=== PATIENT | female | born 1970 | race Caucasian/White ===

== ENCOUNTER 2019-11-05 02:51 | Observation (INO) | payer OTHER, SELFPAY ==
[2019-05-20 13:12] VITALS: BMI 25.4
[2019-11-05] VITALS (8 sets, daily range): BP systolic 105–139; BP diastolic 65–87; PULSE 63–96; RESP 14–17; TEMP 36.8–37.2; O2SAT 98–100; BMI 25.4; BMI 25.1
--- NOTE | 2019-11-05 02:57 | ED.RN ---
RN CALLED FOR EKG, PULLED OLD EKGS FOR
--- NOTE | 2019-11-05 03:03 | EKG12_ITS ---
Test Reason : CP Blood Pressure : / mmHG Vent. Rate : 100 BPM Atrial Rate : 100 BPM P-R Int : 150 ms QRS Dur : 116 ms QT Int : 380 ms P-R-T Axes : 071 018 002 degrees QTc Int : 490 ms Normal sinus rhythm Incomplete right bundle branch block Nonspecific ST and T wave abnormality Prolonged QT Abnormal ECG Confirmed by SUDHAKAR BRADFORD, MARYBETH ([id number]), assignment editor MEAGAN MONTENEGRO ([id number]) on 11/08/2019 3:40:18 PM Referred By: CONSUELO Confirmed By:MARYBETH DE LA FUENTE MD
--- NOTE | 2019-11-05 03:03 | RAD_ITS ---
STUDY: X-RAY CHEST REASON FOR EXAM: Female, 49 years old. Sternal chest pain TECHNIQUE: Single AP portable view of the chest. COMPARISON: 12/10/2014 FINDINGS: The lungs are clear and expanded. There is no demonstrated pleural abnormality. Normal size heart. Normal mediastinum and ismael. Normal visualized pulmonary arteries. Normal visualized aortic arch and descending thoracic aorta. Normal visualized thoracic spine. Normal visualized ribs, clavicles, and shoulders. There is no demonstrated abnormality of the visualized soft tissue structures of the upper abdomen. RAD/Chest 1 View (Portable) IMPRESSION: Normal x-ray examination of the chest. Electronically Signed: Robbi Colby MD at 3:23 EST Tel , Service support ,
--- NOTE | 2019-11-05 03:04 | ED.VIS.GEN ---
History of Present Illness Chief Complaint: Chest Pain Informant: Patient Onset: Hours Current Severity: Mild Maximum Severity: Moderate Narrative: Patient presents with complaint of chest pain. She states she was awoken from sleep an hour and a half ago with chest heaviness and pressure. She felt slightly short of breath and felt clammy. states she was complaining of her jaw not feeling right. Patient states she did not quite feel right yesterday but really cannot put her finger on what specifically was bothering her. Patient is a history of paroxysmal A. fib. She reported is not been in A. fib since 2014. She did stress test at that time is unremarkable. Patient is currently on baby aspirin as well as metoprolol for rate control. She states she is never really had trouble with hypertension or high cholesterol. - Past Medical History (1) Incomplete right bundle branch block Status: Chronic (2) Paroxysmal atrial fibrillation Status: Chronic Past Medical History - Allergies and Home Meds Allergies/Adverse Reactions: Allergies No Known Allergies Allergy (Verified 11/05/19 02:53) Primary Care Physician: Care Physician,No Primary [NON-STAFF] - Doctors: Dr. Mendez Prior records reviewed: Yes Surgical History: - - Cholecystectomy, back surgery, unilateral oopherectomy. Lives: With Family Smoking Status: Never smoker - Family History Maternal Family History: Family History (Last Reviewed 05/20/19 @ 13:[address]) Mother Heart disease Hypertension Family History: Reports: Heart Disease Paternal Family History: Family History (Last Reviewed 05/20/19 @ 13:[address]) Mother Heart disease Hypertension Family History: Reports: No pertinent history Review of Systems General: Denies: Chills, Fever Eyes: Denies: Visual changes - bilaterally ENT: Denies: Bilateral ear pain Cardiovascular: Reports: Chest pain. Denies: Palpitations Respiratory: Reports: Dyspnea. Denies: Cough, Sputum Gastrointestinal: Denies: Abdominal pain, Nausea, Vomiting, Diarrhea Genitourinary: Denies: Dysuria Musculoskeletal: Denies: Swelling, Extremity Pain Skin: Denies: Rash Neurological: Denies: Headache Allergy: Denies: Uticaria Physical Exam Vital Signs/Narrative: Vital Signs Temp Pulse Resp BP Pulse Ox 11/05/19 02:53 98.9 F 96 17 139/87 H 100 Inital Vital Signs reviewed: Yes General: Well nourished, Well developed Head: Normocephalic ENT: Moist mucous membranes Neck: Supple Cardiovascular: Regular rate, Regular rhythm Respiratory: No distress, CTA bilaterally Abdomen: Soft, Nontender, Nondistended Extremities: Nontender Skin: Normal color, No rash Neurological: Alert, Oriented x3 Psychological: Normal affect Diagnostic/Tx/Re-eval Impressions Chest X-Ray 11/05/19 03:03 IMPRESSION: Normal x-ray examination of the chest. Electronically Signed: Robbi Colby MD at 3:23 EST Tel , Service support , 11/05/19 03:03 Chest 1 View (Portable) [RAD] Stat Laboratory Results 11/05/19 11/05/19 03:00 03:00 WBC 8.1 RBC 4.16 L Hgb 12.5 Hct 38.0 MCV 91.3 MCH 30.0 MCHC 32.9 RDW Std Deviation 41.7 RDW Coeff of Joe 12.6 Plt Count 219 MPV 10.6 Immature Gran % (Auto) 0.200 Neut % (Auto) 61.9 Lymph % (Auto) 25.8 [place] % (Auto) 9.1 Eos % (Auto) 2.6 Baso % (Auto) 0.4 Absolute Neuts (auto) 5.0 Absolute Lymphs (auto) 2.08 Nucleated RBC % 0 Sodium 139 Potassium 3.3 L Chloride 106 Carbon Dioxide 27.0 Anion Gap 6 BUN 16 Creatinine 0.71 Estim Creat Clear Calc 90.71 Est GFR (MDRD) Af Amer 113 Est GFR (MDRD) Non-Af 93 BUN/Creatinine Ratio 22.6 H Glucose 104 Calcium 8.8 Troponin I < 0.015 - EKG Initial EKG Interpretation: Sinus Rhythm - Sinus at 100 with incomplete right bundle branch block. There is mild ST depression in the lateral precordial leads. This does appear new when compared to old study, however previous study was in 2015. - Medical Decision Making Patient had taken 2 full size aspirin prior to arrival here. Sitting at rest she states her pain is much improved. Troponin at this time is unremarkable, however I did discuss with her that the blood work was obtained with less than 6 hours of symptoms. Potassium is slightly low and she will be given oral potassium replacement. I have recommended hospitalization for cycling of cardiac enzymes and potential stress test. She is in agreement with this plan. ED Disposition - Plan for ED Patient: Disposition: Acute Care Hospital [facility] Referrals: Care Physician,No Primary [NON-STAFF] -
[2019-11-05 03:09] LABS: Absolute Lymphocyte Count 2.08 X10^3/uL (0.83-4.51); Basophil# 0.03 X10^3/uL; Basophil% 0.4 % (0-1); Eosinophil# 0.21 X10^3/uL; Eosinophils% 2.6 % (0-5); Hemoglobin 12.5 g/dL (12.0-15.0); Lymphocyte # 2.08 X10^3/ul (4.0); Lymphocyte % 25.8 % (19-41); Mean Corp Hgb Conc 32.9 g/dL (32-36); Mean Corpuscular Volume 91.3 fL (81-99); Mean Platelet Vol. 10.6 fl (6.2-12.0); Monocyte# 0.73 X10^3/uL; Monocyte% 9.1 % (0-10); NRBC Flagged by Analyzer 0 % (0-5); Neutrophil # 4.98 X10^3/uL (2.7-7.7); Neutrophil % 61.9 % (47-70); Platelet Count 219 K/mm3 (150-450); RBC Distribution Width CV 12.6 % (11.6-14.6); RBC Distribution Width SD 41.7 fl (35.1-43.9); Red Blood Count 4.16 M/mm3 (4.2-5.4); White Blood Count 8.1 K/mm3 (4.4-11.0)
[2019-11-05] MEDS: 0.9% Normal Saline 1,000 ML 150 ML IV (03:25)
[2019-11-05 03:26] LABS: BUN 16 mg/dL (7-18); Creatinine, Serum 0.71 mg/dL (0.55-1.02); EST Glomerular Filtration Rate 93 mL/min (>60); Estimated Creatinine Clearance 90.71 ml/min; Glucose 104 mg/dL (74-106)
[2019-11-05 03:27] LABS: Anion Gap 6 (5-15); BUN/Creat Ratio 22.6 RATIO (10-20); Calcium,Total 8.8 mg/dL (8.5-10.1); Chloride 106 mmol/L (98-107); Est Glom Filt Rate - Afr Amer 113 mL/min (>60); Potassium 3.3 mmol/L (3.5-5.1); Sodium Level 139 mmol/L (136-145)
--- NOTE | 2019-11-05 04:16 | HP.PCM_ITS ---
Problem List (1) Unstable angina Status: Acute (2) Paroxysmal atrial fibrillation Status: Chronic (3) Incomplete right bundle branch block Status: Chronic History of Present Illness Date of Admission: 11/05/19 Chief Complaint: chest pain The patient is a 49 year old F with a significant history of paroxysmal A. fib in 2014 who presents emergency department with chest pain that actually woke up from the sleep. Chest pain is located at the upper side of his chest. She describes her chest pain as a feeling of something sitting on her chest. Her chest pain was initially intermittent but it became constant. She rated her the severity of her chest pain as 6 out of 10. The chest pain radiated to her jaw; to her left shoulder and to his upper back. Associated with symptoms is nausea; shortness of breath or rigors. Also her hands felt clammy and diaphoretic. Her chest pain began about a hour and fifteen minutes prior to presentation. Of note she took daily routine baby aspirin before she went to sleep. And at the onset of the chest pain she took 2 tablets of full dose aspirin. At time of evaluation at the emergency department her chest pain was 3 out of 10. At the emergency department EKG showed ST depressions in leads V3 through V6. And T waves inversion in lead V1 and V2. Troponin was negative. Past Medical History Past Medical History (Chronic Problems): Chronic Problems (Last Reviewed 05/20/19 @ 13:[address]) Paroxysmal atrial fibrillation (Chronic) Incomplete right bundle branch block (Chronic) Medical History: Medical History (Last Reviewed 11/05/19 @ 04:[address] Pepito Munguia MD) Paroxysmal atrial fibrillation (Chronic) I48.0 Incomplete right bundle branch block (Chronic) I45.10 Chronic back pain M54.9, G89.29 Allergies No Known Allergies Allergy (Verified 11/05/19 02:53) Home Medications: Ambulatory Orders Medication Instructions Recorded aspirin 81 mg tablet,delayed 81 mg PO DAILY 10/09/18 release metoprolol succinate 25 mg 25 mg PO DAILY #30 tab 05/20/19 tablet,extended release 24 hr Calcium 2 tab PO DAILY 11/05/19 L.acidoph,Paracasei, B.lactis 1 ea PO DAILY 11/05/19 [Probiotic] Surgical History: Surgical History (Last Reviewed 11/05/19 @ 04:[address] Pepito Munguia MD) History of back surgery Z98.890 History of cholecystectomy Z90.49 History of oophorectomy Surgical History: - - Cholecystectomy, back surgery, unilateral oopherectomy secondary to endometriosis. 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 Pepito Munguia MD) Mother Heart disease Hypertension History Items: Cancer - Uterine cancer, Heart Disease Paternal Family History: Family History (Last Reviewed 11/05/19 @ 04:[address] Pepito Munguia MD) Mother Heart disease Hypertension Review of Systems Constitutional: Denies: Fever, Weight Change HEENT: Denies: Head Aches, Sinus Congestion, Sinus Drainage Cardiovascular: Reports: Chest Pain. Denies: Palpitations Respiratory: Reports: Shortness of Breath. Denies: Cough, Shortness of breath at rest, Sputum production Gastrointestinal: Reports: Nausea. Denies: Abdominal Pain, Vomiting Genitourinary: Denies: Dysuria Musculoskeletal: Reports: Back Pain, Shoulder Pain. Denies: Joint Pain, Joint Tenderness Skin: Denies: Rash, Wounds Neurological: Denies: Numbness, Tingling, Focal weakness Psychiatric: Denies: Anxiety, Depression, Homicidal Ideations, Suicidal Ideations Hematologic/ Lymphatic: Denies: Easy Bruising, Easy Bleeding VTE Information - Inpt Only VTE Present on Admission: No VTE Mechan Device Prophylaxis: SCD's VTE Pharm Prophylaxis ordered?: No Patient Problems: Active and Suspected Problems (Last Reviewed 05/20/19 @ 13:[address]) Unstable angina (Acute) - Physical Exam Vitals/I&O's: Vital Signs Temp Pulse Resp BP Pulse Ox 98.9 F 79 14 129/80 H 100 11/05/19 03:56 11/05/19 03:56 11/05/19 03:56 11/05/19 03:56 11/05/19 03:56 Oxygen Flow Rate (L/min) 2 Oxygen Delivery Method Nasal Cannula Weight: 71.5 kg Body Mass Index (BMI) 25.4 General: Alert, Oriented x3, Cooperative HEENT: Atraumatic, PERRLA, EOMI, Normocephalic Neck: Supple, No JVD, Negative Carotid Bruits Lungs: Clear to auscultation, Normal air movement Cardiovascular: Regular rate, Normal S1, Normal S2, No murmurs Abdomen: Bowel Sounds Present, Soft, Non Tender Extremities: No edema, Capillary Refill Less than 3 Seconds Skin: No rashes, No breakdown Musculoskeletal: No Tenderness to Palpation of Joints or Extremities Neurological: Cranial nerves II-XII grossly intact Psych/Mental Status: Normal Affect, Appropriate Laboratory Results 11/05/19 03:00: WBC 8.1, RBC 4.16 L, Hgb 12.5, Hct 38.0, MCV 91.3, MCH 30.0, MCHC 32.9, RDW Std Deviation 41.7, RDW Coeff of Joe 12.6, Plt Count 219, MPV 10.6, Immature Gran % (Auto) 0.200, Neut % (Auto) 61.9, Lymph % (Auto) 25.8, [place] % (Auto) 9.1, Eos % (Auto) 2.6, Baso % (Auto) 0.4, Absolute Neuts (auto) 5.0, Absolute Lymphs (auto) 2.08, Nucleated RBC % 0 11/05/19 03:00: Sodium 139, Potassium 3.3 L, Chloride 106, Carbon Dioxide 27.0, Anion Gap 6, BUN 16, Creatinine 0.71, Estim Creat Clear Calc 90.71, Est GFR (MDRD) Af Amer 113, Est GFR (MDRD) Non-Af 93, BUN/Creatinine Ratio 22.6 H, Glucose 104, Calcium 8.8, Troponin I < 0.015 Current Medications Sodium Chloride () 1,000 mls @ 150 mls/hr IV .Q6H40M [facility] Last Admin: 11/05/19 03:25 Dose: 150 mls/hr Documented by: Assessment/Plan All Active Problems (Last Reviewed 05/20/19 @ 13:[address]) Unstable angina (Acute) Chest pain (Resolved) The patient is a 49 year old F with a significant history of paroxysmal A. fib in 2015; and hypertension who presents emergency department with chest pain that actually woke up from the sleep and with EKG changes consistent with unstable angina. Unstable angina Place on a monitored bed at the PCU CXR independently reviewed confirms no acute cardiopulmonary process. EKG independently reviewed confirms depression in leads V3 to V6; traversing lianne d V1 to V2. This is changed from previous EKG in November 2014. Continue ASA 81 mg p.o. daily SL NTG 0.4 mg prn as needed for chest pain We will check lipid panel. Statin: Lipitor 40 mg nightly ordered. Serial cardiac enzymes Stat EKG as needed for chest pain Treadmill stress test in the AM if the cardiac enzymes are negative. Hold home metoprolol for stress test. Hypokalemia Potassium was 3.3. 40 mEq of potassium was ordered emergency department. We will give additional 20 mg. Check magnesium level. Atrial fibrillation Patient's metoprolol felt like the. In 2014 he was admitted for A. fib. He was started on metoprolol and Eliquis. She underwent a stress echocardiogram that was negative for inducible ischemia. 30-day event monitor did not show any additional atrial fibrillation or atrial flutter. Eliquis was eventually discontinued. Continues to be on metoprolol and denies any history of hypertension. Elevated blood pressure without diagnosis of hypertension On presentation blood pressure was not within goal. Continue metoprolol for A. fib. DVT prophylaxis SCD in the setting of cardiac work-up. OBSV E&M: 34642 Initial observation care L3
--- NOTE | 2019-11-05 04:17 | EKG12_ITS ---
Test Reason : AM EKG Blood Pressure : / mmHG Vent. Rate : 066 BPM Atrial Rate : 066 BPM P-R Int : 154 ms QRS Dur : 116 ms QT Int : 418 ms P-R-T Axes : 074 028 018 degrees QTc Int : 438 ms Normal sinus rhythm Incomplete right bundle branch block Confirmed by DARYL BRADFORD, JACK ([id number]), editor book DEXTER KEITA ([id number]) on 11/10/2019 10:09:07 AM Referred By: KIERAN Confirmed By:JACK BRITO MD
[2019-11-05 04:29] LABS: Magnesium 2.3 mg/dL (1.6-2.6)
[2019-11-05] MEDS: Atorvastatin Calcium 40 MG Tablet PO (05:07)
[2019-11-05 06:36] LABS: Cholesterol 225 mg/dL (200); High Density Lipoprotein 83 mg/dL; Triglycerides 36 mg/dL; Very Low Density Lipoprotein 7 mg/dL (5-40)
--- NOTE | 2019-11-05 11:42 | STRESSREP_ITS ---
Stress Test Report Exercise myocardial perfusion stress test. 49-year-old lady with a history of chest pain. Stress protocol demonstrates normal sinus rhythm with a rate of 57 bpm normal intervals are noted resting blood pressure is 110/76 mmHg. Patient exercised according to regular Ras protocol for total duration of 9 minutes. The patient completed stage III of the Ras protocol. The maximum heart rate was 157 bpm which was 91% of maximum predicted heart rate the maximum workload was 10.1 metabolic equivalents. At rest there were no ST or T wave changes noted suggest ischemia. At peak exercise there was approximately 1.[address] depression noted in leads II, III and aVF and 1.3 mm of slightly upsloping to horizontal ST depression noted in V4 V5 and V6. The above is suggestive but not diagnostic of ischemia. In the recovery. The ST changes returned back to being upright. Patient had slight chest discomfort. The resting blood pressure was 110/76 mmHg with a peak blood pressure 148/68 mmHg. Rate-pressure product was 23,200. Myocardial perfusion protocol. 11.6 mCi of technetium 99m sestamibi was injected at rest. The patient exercised according to regular Ras protocol for a total duration of 9 minutes at peak exercise 33.3 mCi of technetium 99m sestamibi was injected stress images were obtained stress and rest images are reconstructed and compared in the short axis vertical long horizontal long axis. Gated images were also obtained Perfusion SPECT analysis: Review of the stress images demonstrate normal uptake of tracer noted in all areas of the myocardium. The resting images similar demonstrate normal uptake of tracer noted in all areas of the myocardium. No areas of reversibility are noted suggest ischemia no previous infarct is noted. Gated SPECT analysis: The gated ejection fraction is noted to be 69%. Conclusion: Normal exercise myocardial perfusion stress test with no nuclear images garrido ggestive of ischemia. Mild chest discomfort noted of unclear significance. Nonspecific EKG changes noted.
--- NOTE | 2019-11-05 13:01 | PCM.DC ---
- Discharge Diagnoses Current Active Problems: Current Active and Chronic Problems (Last Reviewed 11/05/19 @ 04:[address] Pepito Munguia MD) Unstable angina (Acute) Reason(s) for Visit for Discharge Instructions: Chest pain You will use the following diet at home:: Cardiac Your food should be the consistency of: Regular Your liquids should be the consistency of: Regular/Thin Discharge Activity: Return to Normal Activity Instructions: Controlling Your Cholesterol, High Cholesterol: Assessing Your Risk, Understanding Food and Cholesterol, Lifestyle Changes to Control Cholesterol Additional Instructions: Continue to take all your medications. 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 Allergies/Adverse Reactions: Allergies No Known Allergies Allergy (Verified 11/05/19 02:53) Medications to take at Discharge aspirin 81 mg tablet,delayed release 81 mg PO DAILY 10/09/18 metoprolol succinate 25 mg tablet,extended release 24 hr 25 mg PO DAILY #30 tab 05/20/19 Atorvastatin Calcium [Lipitor] 40 mg PO QHS 30 Days #30 tab 11/05/19 Calcium 2 tab PO DAILY 11/05/19 L.acidoph,Paracasei, B.lactis [Probiotic] 1 ea PO DAILY 11/05/19 The following prescriptions were given: Atorvastatin Calcium [Lipitor] 40 mg PO QHS 30 Days #30 tab Transmission Status: Pending to [facility]- [place], [place] Primary Care Physician: Care Physician,No Primary [NON-STAFF] - Please follow up with your Primary Care Physician in: within 1-2 weeks Test Results: Test results from this visit will be discussed in further detail at your follow-up appointment, if applicable. Proposed Discharge Date: 11/05/19
--- NOTE | 2019-11-05 13:10 | PCM.DC.SUM ---
Discharge Date and Diagnosis Date of Admission: 11/05/19 Date of Discharge: 11/05/19 - Primary Discharge Diagnosis Active and Suspected Problems (Last Reviewed 11/05/19 @ 04:[address] Pepito Munguia MD) Chest pain - Secondary Discharge Diagnosis Chronic Problems (Last Reviewed 11/05/19 @ 04:[address] Pepito Munguia MD) Paroxysmal atrial fibrillation (Chronic) Incomplete right bundle branch block (Chronic) Hospital Course and Treatment Imaging Results: 11/05/19 05:55 Nuclear Stress Test - Treadmil [NM] AM (NON MEDS) Clinical Impression(s) from Imaging Studies Chest X-Ray 11/05/19 03:03 IMPRESSION: Normal x-ray examination of the chest. Electronically Signed: Robbi Colby MD at 3:23 EST Tel , Service support , None Operations: None Procedures: Stress test Summary of Care Provided: The patient is a 49 year old F medical history of paroxysmal atrial fibrillation who presented to the emergency department with chest pain that woke her up from sleep. Chest pain was described as pressure-like, intermittent, radiated to her jaw, shoulder and back. It was associated with diaphoresis and palpitations. Her initial EKG in the ED showed some ST segment depressions in V3 to V6 as well septal T wave inversions in V1 to V2. Her troponins were negative. Patient underwent stress test that was negative. She was asymptomatic at the time of discharge. She was recommended to follow-up with cardiology for possible 30-day event monitor. She was asked to continue on her metoprolol. Subjective: On the day of discharge, patient was seen and examined. Denied any new complaints. - Physical Exam Vitals/I&O's: Vital Signs Temp Pulse Resp BP Pulse Ox 98.3 F 63 14 105/65 98 11/05/19 10:20 11/05/19 10:20 11/05/19 10:20 11/05/19 10:11/05/19 11:00 Oxygen Flow Rate (L/min) 2 Oxygen Delivery Method Room Air Weight: 70.6 kg Body Mass Index (BMI) 25.1 Intake and Output for Last 24 Hours 11/03/19 11/04/19 11/05/19 23:59 23:59 23:59 Intake Total 342.5 / 342.5 Balance 342.5 / 342.5 General: Alert, Oriented x3, Cooperative, No apparent distress HEENT: Atraumatic, PERRLA, EOMI, Normocephalic Oral: Moist Mucosa Neck: Supple Lungs: Clear to auscultation, Normal air movement Cardiovascular: Regular rate, Regular Rhythm, Normal S1, No murmurs Abdomen: Bowel Sounds Present, Soft, Non Tender, Non-Distended, No Hepato-splenomegaly Extremities: No edema Skin: No rashes Musculoskeletal: No Tenderness to Palpation of Joints or Extremities Lymphatic: No Cervical, Supraclavicular, or Inguinal Adenopathy Neurological: Cranial nerves II-XII grossly intact Psych/Mental Status: Normal Affect, Appropriate Laboratory Results 11/05/19 03:00: WBC 8.1, RBC 4.16 L, Hgb 12.5, Hct 38.0, MCV 91.3, MCH 30.0, MCHC 32.9, RDW Std Deviation 41.7, RDW Coeff of Joe 12.6, Plt Count 219, MPV 10.6, Immature Gran % (Auto) 0.200, Neut % (Auto) 61.9, Lymph % (Auto) 25.8, [place] % (Auto) 9.1, Eos % (Auto) 2.6, Baso % (Auto) 0.4, Absolute Neuts (auto) 5.0, Absolute Lymphs (auto) 2.08, Nucleated RBC % 0 11/05/19 03:00: Sodium 139, Potassium 3.3 L, Chloride 106, Carbon Dioxide 27.0, Anion Gap 6, BUN 16, Creatinine 0.71, Estim Creat Clear Calc 90.71, Est GFR (MDRD) Af Amer 113, Est GFR (MDRD) Non-Af 93, BUN/Creatinine Ratio 22.6 H, Glucose 104, Calcium 8.8, Troponin I < 0.015 11/05/19 03:00: Magnesium 2.3 11/05/19 05:54: Troponin I < 0.015, Triglycerides 36, Cholesterol 225 H, LDL Cholesterol 135 H, VLDL Cholesterol 7, HDL Cholesterol 83 11/05/19 09:08: Troponin I < 0.015 Current Medications Acetaminophen (Tylenol) 650 mg PO Q6H PRN PRN PRN Reason: Pain Score 1-10/Temp > 100.7 F Aspirin (Ecotrin) 81 mg PO DAILYCM [facility] Atorvastatin Calcium (Lipitor) 40 mg PO QHS [facility] Last Admin: 11/05/19 05:07 Dose: 40 mg Documented by: Glucagon () 1 mg IM .X1 PRN PRN Reason: Hypoglycemia Dextrose (Dextrose 10%-Water) 250 mls @ 999 mls/hr IV .Q16M PRN; Protocol PRN Reason: HYPOGLYCEMIA Metoprolol Succinate (Toprol Xl (Beta Frederic)) 25 mg PO QHS [facility] Nitroglycerin (Nitrostat) 0.4 mg SUBLINGUAL Q5M PRN PRN Reason: CARDIAC/CHEST PAIN Ondansetron HCl (Zofran) 4 mg IV Q8H PRN PRN PRN Reason: NAUSEA/VOMITING Sodium Chloride () 10 - 40 ml IV UD PRN PRN Reason: SALINE FLUSH Discharge Diet: Low fat/ Low Cholesterol, 2000 mg Sodium Diet Discharge Activity: Return to Normal Activity Home Medications: Medications to take at Discharge aspirin 81 mg tablet,delayed release 81 mg PO DAILY 10/09/18 metoprolol succinate 25 mg tablet,extended release 24 hr 25 mg PO DAILY #30 tab 05/20/19 Atorvastatin Calcium [Lipitor] 40 mg PO QHS 30 Days #30 tab 11/05/19 Calcium 2 tab PO DAILY 11/05/19 L.acidoph,Paracasei, B.lactis [Probiotic] 1 ea PO DAILY 11/05/19 Following Prescrptions Were Given to Patient: Atorvastatin Calcium [Lipitor] 40 mg PO QHS 30 Days #30 tab Transmission Status: [place] Primary Care Physician: Care Physician,No Primary [NON-STAFF] - Please follow up with your Primary Care Physician in: within 1-2 weeks Patient Instructions: Controlling Your Cholesterol, High Cholesterol: Assessing Your Risk, Understanding Food and Cholesterol, Lifestyle Changes to Control Cholesterol Medical Necessity - Tobacco Use Smoking Status: Never smoker Tobacco Use: Non-smoker Meaningful Use Info Meaningful Use Diagnoses (Choose all that apply): None applicable OBSV E&M: 05308 Observation care discharge
== END 2019-11-05 12:52 | disposition home or self-care (01) ==
LOC: ED 03:33 → PCU 04:22
PROVIDERS: Admitting Provider Hospitalist; Emergency Provider Emergency Medicine; PCP Student in an Organized Health Care Education/Training Program; Visit Provider Internal Medicine
DX: R07.89 Other chest pain (principal); I48.0 Paroxysmal atrial fibrillation; I48.20 Chronic atrial fibrillation, unspecified; I45.19 Other right bundle-branch block; Z79.899 Other long term (current) drug therapy; Z79.82 Long term (current) use of aspirin; E87.6 Hypokalemia; R03.0 Elevated blood-pressure reading, without diagnosis of hypertension
CPT/HCPCS: 36415; 71045; 78452; 80048; 80061; 83735; 84484; 85025; 93005; 93017; 96360; 99218; 99285; A9500; J7030; A4216; G0378

== ENCOUNTER 2020-01-21 09:56 | Emergency (ER) | payer OTHER, SELFPAY ==
[2019-12-31 10:13] VITALS: BMI 24.2
[2020-01-21 09:58] VITALS: BP 132/82; PULSE 67; RESP 14; TEMP 36.6; O2SAT 100; BMI 25.5
--- NOTE | 2020-01-21 10:12 | CT_ITS ---
STUDY: CT ABDOMEN AND PELVIS WITH CONTRAST REASON FOR EXAM: Female, 49 years old. PT STATED LLQ WITH GAURDING, VAGINAL BLEEDING X 4 WEEKS RADIATION DOSAGE (If Supplied By Facility): CTDIvol = ( 12.07 ) mGy, DLP = ( 692.89 ) mGycm TECHNIQUE: Transaxial images were obtained from the dome of the diaphragm to the symphysis pubis without oral contrast. IV 100mL Isovue-300 was administered. Sagittal and coronal images were reconstructed. Individualized dose optimization techniques were used for this CT. COMPARISON: None. FINDINGS: The visualized lung bases are unremarkable. The visualized portions of the heart are within normal limits. Normal liver. There are surgical clips in the gallbladder fossa consistent with a prior cholecystectomy. Normal spleen. Normal pancreas. Normal bilateral adrenal glands. Normal right kidney. Normal left kidney. Normal visualized stomach. Normal small intestine. Normal colon. The appendix is visualized and appears normal. Normal abdominal aorta. Normal inferior vena cava. Normal retroperitoneum. Normal urinary bladder. There is a hypoattenuation lesion at the anterior aspect of the fundus measures 1.9 cm most likely represent a fibroid. Normal left ovary. Nonvisualized right ovary. Normal abdominal wall. Normal osseous structures. CT/Abdomen/Pelvis W IV Cont ONLY IMPRESSION: Uterine fibroid measures 1.9 cm Electronically Signed: Guillermo Velazquez, at 11:33 EDT Tel , Service support ,
--- NOTE | 2020-01-21 10:13 | ED.VIS.GEN ---
History of Present Illness Chief Complaint: Abd Pain Informant: Patient Onset: Days Context: Sudden Onset Timing: Continuous, Waxes and wanes Quality: Sharp Location: Left lower quadrant Current Severity: Mild Maximum Severity: Moderate Worsened by: Nothing Relieved by: Nothing Associated Symptoms: Nausea and chills this morning Narrative: Patient is a 49-year-old female who presents with left lower quadrant pain described as sharp that started Friday. Nothing makes the pain better or worse. Nothing precipitated the pain. She had transient left low back pain. She denies history of renal or ureterolithiasis. She does have history of endometriosis and had a oophorectomy on the right. She is also status post cholecystectomy. She denies dysuria, frequency or hematuria. She states she has had vaginal bleeding for 4 weeks. She states her menstrual periods have been irregular. Last normal menstrual period was November 10, 2019. she did contact her OB, Dr. Rashid Wallis. She states she is not . There is no history of colonoscopy. There is no history of diverticulosis or diverticulitis. She denies change in size, consistency or color of her stool. She denies black, maroon stool or blood in her stool. She denies rash or lesion. She denies history of trauma. Prior similar symptoms: No Recent Illness/Hospitalization: No - Past Medical History (1) Endometriosis Status: Chronic Past Medical History - Allergies and Home Meds Allergies/Adverse Reactions: Allergies atorvastatin [From Lipitor] Adverse Reaction (Intermediate, Verified 12/31/19 10:15) nausea and headache Primary Care Physician: Sabiha Kerns MD [Primary Care Provider] - Prior records reviewed: Yes Surgical History: cholecystectomy Lives: Spouse/ Significant Other Smoking Status: Never smoker Alcohol: None Drugs: None - Family History Maternal Family History: Family History (Last Reviewed 12/31/19 @ 10:[address]) Mother Heart disease Hypertension Family History: Reports: Cancer - Uterine cancer, Heart Disease Paternal Family History: Family History (Last Reviewed 12/31/19 @ 10:[address] [facility]) Mother Heart disease Hypertension Family History: Reports: No pertinent history Review of Systems General: Reports: Chills, Malaise. Denies: Fever, Subjective, Sweats Eyes: Denies: Visual changes - bilaterally, Blurred Vision - bilaterally ENT: Denies: Bilateral ear pain, Rhinorrhea, Sore throat Cardiovascular: Denies: Chest pain, Palpitations Respiratory: Denies: Dyspnea, Cough, Dyspnea on exertion Gastrointestinal: Reports: Abdominal pain, Nausea. Denies: Vomiting, Diarrhea, Constipation, Melena, Hematochezia Genitourinary: Denies: Dysuria, Hematuria, Frequency Musculoskeletal: Reports: Back pain. Denies: Myalgias, Arthralgias, Neck pain, Swelling, Extremity Pain, -, - Skin: Denies: Rash, Wounds Neurological: Denies: Weakness, Parasthesia Endocrine: Denies: Polyuria, Polydipsia Physical Exam Vital Signs/Narrative: Vital Signs Temp Pulse Resp BP Pulse Ox 01/21/20 09:58 98 F 67 14 132/82 H 100 Inital Vital Signs reviewed: Yes Abdomen: Soft, No masses, Tender, Guarding - Left lower quadrant, Hypoactive bowel sounds. Negative for: Nontender, Nondistended, Normal bowel sounds, Rebound tenderness, Hyperactive bowel sounds, Hepatomegaly, Splenomegaly, Mass, Pulsatile mass, Ventral hernia, Umbilical hernia Rectal: Deferred Back: Nontender, Normal Inspection, - - Healed scar Extremities: Nontender, No edema Skin: Normal color, No rash Neurological: Alert, Oriented x3, Cranial nerves II-XII grossly intact, Normal Strength, Normal Sensation Psychological: Normal affect, Normal Mood Diagnostic/Tx/Re-eval Impressions Abdomen/Pelvis CT 01/21/20 10:12 IMPRESSION: Uterine fibroid measures 1.9 cm Electronically Signed: Guillermo Velazquez, at 11:33 EDT Tel , Service support , 01/21/20 10:12 Abdomen/Pelvis W IV Cont ONLY [CT] Stat Laboratory Results 01/21/20 01/21/20 01/21/20 10:18 10:18 10:18 WBC 4.8 RBC 4.13 L Hgb 12.3 Hct 38.6 MCV 93.5 MCH 29.8 MCHC 31.9 L RDW Std Deviation 42.6 RDW Coeff of Joe 12.4 Plt Count 192 MPV 11.0 Immature Gran % (Auto) 0.200 Neut % (Auto) 62.5 Lymph % (Auto) 24.6 [place] % (Auto) 10.0 Eos % (Auto) 2.1 Baso % (Auto) 0.6 Absolute Neuts (auto) 3.0 Absolute Lymphs (auto) 1.18 Nucleated RBC % 0 Sodium 144 Potassium 3.2 L Chloride 114 H Carbon Dioxide 24.0 Anion Gap 6 BUN 15 Creatinine 0.51 L Estim Creat Clear Calc 126.29 Est GFR (MDRD) Af Amer 166 Est GFR (MDRD) Non-Af 137 BUN/Creatinine Ratio 29.5 H Glucose 83 Calcium 7.0 L Serum , Qual NEGATIVE CBC, basic metabolic panel and serum tests are negative. CAT scan reveals a 1.9 cm uterine fibroid. Suspect this is the cause of her pain and abnormal bleeding. She was instructed to keep appointment with her visual display manager, Dr. Rashid Wallis. Plan is to discharge to home. - Medical Decision Making Patient presents with left lower quadrant abdominal pain. Differential diagnosis would include diverticulosis, ovarian cyst, ovarian torsion, endometriosis. With abnormal vaginal bleeding will obtain serum test to rule out . Because patient has tenderness in the left lower quadrant with guarding and reported chills and fever per triage will obtain CT of the abdomen with IV contrast. Since she has vaginal bleeding urine specimen was not obtained. Is offered antiemetic, which she declined. ED Disposition - Plan for ED Patient: Disposition: Home or Assisted Living Diagnosis: Fibroid, uterine, Abnormal vaginal bleeding Instructions: ED FIBROIDS Referrals: Sabiha Kerns MD [Primary Care Provider] - Rashid Wallis MD [STAFF PHYSICIAN] - Keep Maribell appointment
[2020-01-21 10:26] LABS: Absolute Lymphocyte Count 1.18 X10^3/uL (0.83-4.51); Basophil# 0.03 X10^3/uL; Basophil% 0.6 % (0-1); Eosinophils% 2.1 % (0-5); Hematocrit 38.6 % (37-47); Hemoglobin 12.3 g/dL (12.0-15.0); Lymphocyte # 1.18 X10^3/ul (4.0); Lymphocyte % 24.6 % (19-41); Mean Corp Hgb Conc 31.9 g/dL (32-36); Mean Corpuscular Hgb 29.8 pg (27.0-32.0); Mean Corpuscular Volume 93.5 fL (81-99); Monocyte# 0.48 X10^3/uL; NRBC Flagged by Analyzer 0 % (0-5); Neutrophil % 62.5 % (47-70); Platelet Count 192 K/mm3 (150-450); RBC Distribution Width CV 12.4 % (11.6-14.6); RBC Distribution Width SD 42.6 fl (35.1-43.9); Red Blood Count 4.13 M/mm3 (4.2-5.4); White Blood Count 4.8 K/mm3 (4.4-11.0)
[2020-01-21 10:37] LABS: Internal QC Validated? YES +Cl - CLEAR BKGD; Pregnancy, Serum, hCG Quali. NEGATIVE Negative
[2020-01-21 10:43] LABS: Anion Gap 6 (5-15); BUN 15 mg/dL (7-18); BUN/Creat Ratio 29.5 RATIO (10-20); Chloride 114 mmol/L (98-107); Creatinine, Serum 0.51 mg/dL (0.55-1.02); EST Glomerular Filtration Rate 137 mL/min (>60); Est Glom Filt Rate - Afr Amer 166 mL/min (>60); Estimated Creatinine Clearance 126.29 ml/min; Glucose 83 mg/dL (74-106); Potassium 3.2 mmol/L (3.5-5.1); Sodium Level 144 mmol/L (136-145)
[2020-01-21 12:20] VITALS: BP 117/89; PULSE 79; RESP 14; O2SAT 97
[2020-01-21 12:21] VITALS: BP 106/72; PULSE 68; RESP 16; O2SAT 100
== END 2020-01-21 12:21 | disposition home or self-care (01) ==
LOC: ED 11:55
PROVIDERS: Emergency Provider Emergency Medicine; PCP Student in an Organized Health Care Education/Training Program
DX: D25.9 Leiomyoma of uterus, unspecified (principal); N80.9 Endometriosis, unspecified
CPT/HCPCS: 36415; 74177; 80048; 84703; 85025; 99285; J7030; Q9967; A4216

== ENCOUNTER → 2020-01-27 | Outpatient (CLI) | payer SELFPAY ==
[2020-01-21 09:58] VITALS: BMI 25.5
--- NOTE | 2020-01-27 | EMB_PTH ---
PATIENT: ASA BARRERA LOC: [facility] U#:[id number] AGE/SX: 49/F ROOM: RE01/27/[address]: Dr. Rashid Wallis MD : 1970 BED: DIS: 01/27/2020 SPEC #: [id number] RECD: 01/27/20 11:50 STATUS: LEA REMark #: [id number] SUZETTE: 01/27/20 00:[address]: Rashid Wallis DEPT: SURGICAL PATHOLOGY RECD BY: Robbi Rosario ENTERED: 01/28/20 10:54 SP TYPE: ENDOM BX/C ISABELA DR: Dr. Sabiha Kerns MD Tissues: Endometrium, NOS Procedures: Surgery Specimen Level IV HEADER OPERATION: Endometrial biopsy PRE-OP DIAGNOSIS: Irregular bleeding TISSUE SUBMITTED: Endometrial biopsy MICROSCOPIC DIAGNOSIS Endometrium, biopsy: Proliferative endometrium with focal glandular breakdown. AM:surendra 01/31/20 MICROSCOPIC DESCRIPTION Slides are reviewed. GROSS DESCRIPTION Received in fixative is one container labeled with the patient's name and designated endometrial biopsy. The specimen consists of multiple fragments of hemorrhagic soft tissue that in aggregate measure 2.5 x 1 x 0.1 cm. The specimen is totally submitted in one cassette. / SJ:surendra 01/28/20 TC:5 CPT: 59888
[2020-01-28 15:55] LABS: HPV Reflexed? NOT INDICATED
== END | disposition home or self-care (01) ==
LOC: LABSPEC 10:51
PROVIDERS: PCP Student in an Organized Health Care Education/Training Program; Visit Provider Obstetrics & Gynecology
DX: N92.6 Irregular menstruation, unspecified (principal); Z12.4 Encounter for screening for malignant neoplasm of cervix
CPT/HCPCS: 88175; 88305; G0145

== ENCOUNTER 2020-01-28 07:55 | Day surgery (SDC) | payer SELFPAY ==
[2020-01-27 11:59] VITALS: BMI 24.2
--- NOTE | 2020-01-28 08:19 | EKG12_ITS ---
Test Reason : PRE PROCEDURE Blood Pressure : / mmHG Vent. Rate : 062 BPM Atrial Rate : 062 BPM P-R Int : 150 ms QRS Dur : 110 ms QT Int : 428 ms P-R-T Axes : 061 014 013 degrees QTc Int : 434 ms Normal sinus rhythm Normal ECG No previous ECGs available Confirmed by SUDHAKAR BRADFORD, MARYBETH ([id number]), general expeditor MEAGAN MONTENEGRO ([id number]) on 02/02/2020 9:45:31 AM Referred By: Derrek Mendez Confirmed By:MARYBETH DE LA FUENTE MD
[2020-01-28 08:25] LABS: Anion Gap 4 (5-15); BUN 14 mg/dL (7-18); BUN/Creat Ratio 21.1 RATIO (10-20); Calcium,Total 8.8 mg/dL (8.5-10.1); Chloride 108 mmol/L (98-107); Creatinine, Serum 0.66 mg/dL (0.55-1.02); EST Glomerular Filtration Rate 101 mL/min (>60); Est Glom Filt Rate - Afr Amer 122 mL/min (>60); Estimated Creatinine Clearance 97.59 ml/min; Glucose 91 mg/dL (74-106); Potassium 4.3 mmol/L (3.5-5.1); Sodium Level 141 mmol/L (136-145)
[2020-01-28 08:54] LABS: hCG Titer Quant., Serum < 1 mIU/mL (1-3)
--- NOTE | 2020-01-28 09:05 | PCM.HP.BLA ---
Problem List (1) Chest pain on exertion Status: Acute (2) Incomplete right bundle branch block Status: Chronic History and Physical Date of Admission: 01/28/20 [facility] [address] [place] [address] OFFICE VISIT Date of Service: 12/31/19 MR#: [id number] Acct: [id number] Patient: ASA BARRERA Rep #: [id number] : 1970 Provider: Derrek Mendez MD Age/Sex: 49/F Location: [facility] [place] Status: Signed Intake Vital Signs 12/31/19 Height 5 ft 6 in 12/31/19 Weight: 150 lb 12/31/19 BMI 24.2 12/31/19 Comment Pt does not have bp machine at home Intake Visit Reasons: PHONE VISIT 6 M FU Chief Complaint: chest pain 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: No Is patient in pain?: No Allergies atorvastatin [From Lipitor] Adverse Reaction (Intermediate, Verified 12/31/19 10:15) nausea and headache Medications aspirin 81 mg tablet,delayed release 81 mg PO DAILY 10/09/18 [History Confirmed 12/31/19] metoprolol succinate 25 mg tablet,extended release 24 hr 25 mg PO DAILY #30 tab 05/20/19 [Rx Confirmed 12/31/19] Calcium 2 tab PO DAILY 11/05/19 [History Confirmed 12/31/19] L.acidoph,Paracasei, B.lactis [Probiotic] 1 ea PO DAILY 11/05/19 [History Confirmed 12/31/19] Is last menstrual period known: Yes Post menopausal: No Patient : No Nurse's Note: LMP 1 week ago. [facility] Medical History (Updated 12/31/19 @ 10:[address]) Incomplete right bundle branch block (Chronic) Chronic back pain (Chronic) Surgical History History of back surgery (Chronic) History of cholecystectomy (Chronic) History of oophorectomy (Chronic) Family History Mother Heart disease MVP Hypertension Social History (Updated 12/31/19 @ 10:[address] Derrek Mendez MD) Smoking Status: Never smoker alcohol intake: never HPI HPI Chief Complaint: chest pain Details: Patient was informed that this visit will be billed to patient. This visit was conducted during COVID-19 pandemic. Details: Mrs. Roa is a very pleasant 49-year-old nondiabetic hypertensive female, who initially presented to [facility] on 12/10/14 with chest discomfort and new onset atrial flutter. She was anticoagulated with Lovenox, placed on Lopressor. I saw her in consultation and she underwent a stress echocardiogram which was negative for inducible ischemia at an excellent workload. In addition she underwent a 2-D echo with Doppler on 12/10/14 which demonstrated normal LV function, EF of 65%, no mitral valve prolapse, RVSP of 20 mmHg. The patient spontaneously converted, and was prescribed beta jayne and Eliquis. in addition she underwent a 30 day event monitor which essentially showed no additional atrial fibrillation or atrial flutter. She ultimately discontinued her Eliquis, and is now here for follow-up. She remains on beta jayne and baby aspirin Patient can detect when she is in and out of atrial fibrillation, and she has had no atrial fibrillation symptoms. Patient recently came to the emergency room on 11/05/2019 with chest pain that woke her up from a sound sleep. It was described as pressure-like, intermittent radiating to her jaw shoulder and back and associated with diaphoresis and palpitations. Her EKG demonstrated sinus tachycardia, incomplete right bundle branch block, nonspecific ST and T wave changes inferiorly. Troponins were negative. She was ruled out for myocardial infarction, and underwent a treadmill/MPI on 11/05/2019 which was negative for inducible ischemia. She was subsequently sent home and is now on the phone and follow-up. Since discharge the patient has had no further chest pain symptoms. She denies any palpitations, she is back to walking without any difficulty whatsoever. She is taking and tolerating her medicines well Blood pressure at her home on his telephone call is 105/65, and pulse is 63 and regular. Her physical exam is as below.her lipids as of 01/09/15 showed HDL of 74 and an LDL of 124. EKG previously demonstrated normal sinus rhythm, incomplete right bundle branch block, normal intervals. Lipids dated 12/10/2014 show an LDL of 124 and HDL of 74. Lipids dated 11/05/2019 show an HDL of 83 and an LDL of 135. ROS Const Constitutional: Positive for other (Feels really well, no more CP (was in PCU with CP).); no anorexia, body ache, chills, excessive sweating, fatigue, fever(s), frequent falls, headache(s), decreased energy, malaise, night sweats, snoring, weakness, weight change, sleep problems, abnormal sleep pattern or change in appetite Eyes Eyes: No blurry vision, change in vision, double vision, discharge, dry eyes, bulging eyes, floaters, visual disturbances, eye pain, light sensitivity, spots in vision, tunnel vision or other ENT ENT: No abnormal hearing, ear pain, ear discharge, ear pressure, hearing loss, tinnitus, dizziness/vertigo, balance problems, nosebleed/epistaxis, nasal congestion, nasal obstruction, nose pain, sinus pressure, sinus pain, nasal discharge, post nasal drip, headache(s), facial pain, dental pain, dry mouth, difficulty swallowing, bad breath, hoarseness, lip swelling, mouth lesions, mouth pain, neck pain, sore throat, tongue swelling, throat swelling or other Resp Respiratory: No cough, change in phlegm color, chest congestion, excessive phlegm production, hemoptysis, pain on inspiration, shortness of breath, pain with cough, snoring, stridor, wheezing or other Cardio Cardiology: No chest pain at rest, chest pain with exertion, leg pain with exertion, excessive sweating, shortness of breath, dyspnea on exertion, generalized swelling, irregular heart rhythm, lightheadedness, orthopnea, radiating jaw, neck or arm pain, fast heart rate, slow heart rate, palpitations or other Gastro GI: No abdominal pain, belching, bloating, change in bowel habits, change in stool character, coffee ground emesis, constipation, cramping, diarrhea, heartburn, difficulty swallowing, feeling full early, excessive flatus, incontinent of stools, Vomiting blood/hematemesis, blood in stool, loose stools, Black,tarry stools, nausea/dyspepsia, pain with swallowing, vomiting or other Musc Musculoskeletal: No abnormal walking, joint pain, back pain, deformity, joint swelling, limited range of motion, loss of height, muscle cramps, muscle weakness, decreased muscle mass, body aches, neck pain, numbness, radiating pain into limb, stiffness, tingling or other Skin Skin: No acne, hair loss, change in hair, nail changes, boil, change in skin color, dry skin, redness, excessive hair growth, yellowing of the skin, lesions, itching, rash, skin pain, skin ulcer, sores, skin swelling, wounds or other Breast Breast: No other Neuro Neurology: No abnormal walking, abnormal hearing, abnormal movements, abnormal speech, behavioral changes, confusion, unsteady gait/balance, dizziness, weakness, frequent falls, headache(s), lack of coordination, loss of vision, memory loss, numbness, tingling, visual disturbances, restless legs, fainting, tremor(s) or other Psych Psychiatric: No abnormal sleep pattern, No lack of enjoyment, No anxiety, No behavioral changes, No change in appetite, No confusion, No depression, No difficulty concentrating, No hopelessness, No irritability, No memory loss, No mood swings, No panic attacks, No paranoia, No Thoughts of harming yourself/Others, No hallucinations, No other Endo Endocrine: Positive for change in body appearance, cold intolerance, flushing, heat intolerance, increased thirst/drinking, increased hunger and increased urination; no excessive sweating, fatigue or other Aller/Imm Allergy/Immunologic: No food intolerance, itchy eyes, lip swelling, seasonal allergy symptoms, throat swelling, tongue swelling, hives, wheezing or other Orestes/Lymp Hematologic/Lymphatic: No easy bleeding, easy bruising, enlarged lymph nodes or other Exam Const Other: Pt's physical exam deferred d/t telephone visit during COVID-19 Pandemic [facility] [place]culoskeletal: No muscle weakness Details: Details:: Exam was limited due to phone visit with no video. Quality Reporting Medication Reconciliation ([facility] 68) aspirin (Adult Aspirin Regimen) 81 mg PO DAILY [Calcium 2 tabs PO DAILY] L.acidoph, paracasei,B. lactis 1 ea PO DAILY metoprolol succinate ER 25 mg PO DAILY BMI Screening ([facility] 69) Body Mass Index (BMI): 25.1 Tobacco Screening ([facility] 138) Smoking Status: Never smoker Assessment & Plan 1. Unstable angina I20.0 Plan 1. Unstable angina: The patient presented with new onset chest pain which woke her up from a sound sleep, ruled out for myocardial infarction, and underwent a treadmill/MPI which was negative for inducible ischemia at a good workload. She has had no chest pain prior to or subsequent to her admission, and she is doing quite well on medical therapy. I recommend she continue her baby aspirin and metoprolol. Patient has no positive family history of coronary disease in her mother, father, brother or sister, so I would recommend holding off on aggressive antilipid therapy at this time. Her HDL is quite good. Have encouraged her to adjust her diet and increase exercise in order to lower her LDL. Should the patient have recurrent chest pain symptoms, and have a low threshold for the patient undergo a diagnostic left heart catheterization given her constellation of symptoms when she was admitted in October 2019 2. Paroxysmal atrial fibrillation I48.0 Plan 2. Atrial fibrillation: The patient is very much aware when she goes in and out of atrial fibrillation, and she denies any palpitations or atrial fibrillation symptoms since her admission. Recommend continuing metoprolol therapy for heart rate control. I do not believe she requires anticoagulation at this time. 3. Return office in [address]. Telephone time with Ct 10 minutes Telephone time with Dr. Mendez 6 minutes. This note was generated using a voice recognition system and there may be incorrect words, spelling or punctuation that were not noted when reviewing the office note prior to saving. Plan Detail Follow Up +6M (Andrea) 12/31/19 1054 <Electronically signed by Derrek Mendez MD> Date Derrek Mendez MD Cosigner Signature: Date (if applicable) CC: Sabiha Kerns MD ~ Interventional cardiology addendum: Patient seen and examined this morning, no changes to physical exam. The patient continues to have ongoing chest pain symptoms despite noninvasive cardiac evaluation with stress testing. Have recommended diagnostic coronary angiogram to confirm/deny the presence of significant coronary occlusive disease. The risk/benefits of the procedure were thoroughly explained to the patient cleaning specific attention to lack of onsite surgical backup, and the patient agrees to proceed. Cardiac catheterization to follow.
--- NOTE | 2020-01-28 09:30 | CL.D_ITS ---
Patient Name: ASA BARRERA Study Date: 01/28/2020 Performing: Derrek Mendez MD Ht: 66.14 inches 168 cm : 1970 Wt: 149.91 lbs 68 kg Age: 49 Gender: female BSA: 1.77 PROCEDURE(S) PERFORMED IL65-AKP/COR/LV CLINICAL PROFILE AND INDICATIONS Indications: New Onset Angina <= 2 months, Suspected CAD Heart Failure: None Stress/Imaging Date: 11/05/2019Stress Test with SPECT MPI: Negative Angina Classification Anginal Classification w/in 2 Weeks: CCS III CAD Presentations: Unstable angina. Comorbidities/Risk Factors: Hypertension CONCLUSIONS Normal coronary arteries Normal LV size, wall motion,and systolic function RECOMMENDATIONS No recommendations -> Normal findings Management as per referring Director Of Strategic Marketing Manual sheath removal d/c asa/plavix DESCRIPTION OF PROCEDURE The patient arrived to the procedure lab. The risks and benefits of the procedure as well as a full d escription of our services here and current unavailability of surgical backup were fully explained to the patient and/or their significant other prior to the catheterization. The Timeout was completed, verifying the correct patient and procedure. The patient's procedural site was prepped and draped in the usual fashion. Local anesthetic was given subcutaneously to right groin region with Lidocaine 2%. Using a modified Seldinger technique, arterial access was obtained via the right femoral artery, a 4 Fr sheath was inserted Left Coronary Artery selective angiography was performed in multiple views us ing a 4 Fr. JL5 catheter. Right Coronary Artery selective angiography was then performed in multiple views using a 4 Fr. 3DRC catheter. Left Ventriculography was performed in BORREGO projection using a 4 Fr . Pigtail catheter. LV to AO pullback pressures were then recorded.The arterial sheath was pulled and manual compression applied until hemostasis is achieved. CORONARY ANGIOGRAPHY DOMINANCE: Right Dominant LEFT HEART ASSESSMENT Left Ventricular Ejection Fraction: by LV Gram 65 % Normal LV wall motion Normal Left Ventricular systolic function Normal Left Ventricular systolic function LVEDP: 14 mmHg Normal Left Ventricular systolic function LEFT MAIN: Angiographically normal LEFT ANTERIOR DESCENDING ARTERY: Angiographically normal CIRCUMFLEX ARTERY: Angiographically normal RIGHT CORONARY ARTERY: Angiographically normal COMPLICATIONS No Complications PROCEDURE MEDICATIONS Oxygen: 2 L/min via nasal cannula SUMMARY OF HEMODYNAMIC DATA Time AIR REST ECG 08:25:25 AO 127/71 (95) SA 09:13:34 LV 139/-18, 13 09:19:32 LV 138/-19, 15 09:19:38 LVp 137/-19, 14 09:19:42 AOp 137/68 (98) 09:19:47 Signed By Derrek Mendez MD On 01/28/2020 09:29:20 Derrek Mendez MD
== END 2020-01-28 14:03 | disposition home or self-care (01) ==
PROVIDERS: PCP Student in an Organized Health Care Education/Training Program; Referring Provider Internal Medicine Cardiovascular Disease; Visit Provider Internal Medicine Cardiovascular Disease
DX: I20.0 Unstable angina (principal); I48.0 Paroxysmal atrial fibrillation; I10 Essential (primary) hypertension; I45.10 Unspecified right bundle-branch block; Z79.82 Long term (current) use of aspirin; Z79.899 Other long term (current) drug therapy
CPT/HCPCS: 36415; 80048; 84702; 93005; 93458; J7040; Q9967; C1769; C1894

== ENCOUNTER → 2020-02-01 | Outpatient (CLI) | payer SELFPAY ==
[2020-01-27 11:59] VITALS: BMI 24.2
== END | disposition home or self-care (01) ==
LOC: LABSPEC 11:06
PROVIDERS: PCP Student in an Organized Health Care Education/Training Program; Visit Provider Obstetrics & Gynecology
DX: R30.0 Dysuria (principal)
CPT/HCPCS: 87086; 87088; 87186

== ENCOUNTER → 2021-02-19 15:22 | Outpatient (CLI) | payer SELFPAY ==
[2021-02-05 09:20] VITALS: BMI 27.1
--- NOTE | 2021-02-19 15:45 | MRI_ITS ---
STUDY: MRI LUMBAR SPINE WITH AND WITHOUT CONTRAST REASON FOR EXAM: Female, 50 years old. pain TECHNIQUE: Standardized fat and water weighted pulse sequences were obtained in the sagittal and axial planes. IV 15CC DOTAREM was administered for the contrast portion of the examination. COMPARISON: None FINDINGS: Sagittal and axial T1 and T2-weighted images of the lumbosacral spine were obtained. The vertebral bodies are of normal height the vertebral bodies are of normal height and alignment throughout the entire spine except to note. Narrowing at the level of L5-S1 where there the interpedicular screws fixing L5-S1 level with apparently fusion of L5-S1 level no associated the soft tissue mass noted in the area nor the abnormal enhancement to suggest the spondylodiscitis at this time. The paravertebral soft tissue is of normal signal intensity. No spinal stenosis seen there. No evidence of this. Protrusion identified. These findings at L5-S1 is new since the previous examination of 06/24/2008. MRI/Spine Lumbar W/WO Contrast IMPRESSION: Evidence of fusion with interpedicular screws at L5-S1 level as mentioned above. Electronically Signed: Jie Kaplan, at 7:55 EDT ,
== END ==
PROVIDERS: PCP Student in an Organized Health Care Education/Training Program; Referring Provider Orthopaedic Surgery; Visit Provider Orthopaedic Surgery
DX: M54.5 Low back pain (principal); Z98.1 Arthrodesis status
CPT/HCPCS: 72158; A9575

== ENCOUNTER 2021-07-21 19:52 | Emergency (ER) | payer SELFPAY ==
[2021-07-21 19:53] VITALS: BP 149/77; PULSE 101; RESP 20; TEMP 37; O2SAT 97; BMI 26.6
[2021-07-21 20:13] VITALS: BP 156/69; PULSE 91; RESP 17; O2SAT 100
--- NOTE | 2021-07-21 20:19 | EKG12_ITS ---
Test Reason : DYSRHYTHMIA Blood Pressure : / mmHG Vent. Rate : 079 BPM Atrial Rate : 079 BPM P-R Int : 144 ms QRS Dur : 114 ms QT Int : 392 ms P-R-T Axes : 070 020 022 degrees QTc Int : 449 ms Sinus rhythm with occasional Premature ventricular complexes Nonspecific ST abnormality Abnormal ECG Confirmed by USDHAKAR BRADFORD, MARYBETH ([id number]), senior editor DEXTER KEITA ([id number]) on 07/23/2021 1:28:18 PM Referred By: CHRISTIANO Confirmed By:MARYBETH DE LA FUENTE MD
--- NOTE | 2021-07-21 20:20 | EX.ED.DYSGE1 ---
HPI History of Present Illness Chief Complaint: Palpitations Detail of Chief Complaint: Palpitations that started this morning Informant: patient Narrative Narrative: Patient presents to the emergency department with complaint of fluttering in her chest that started this morning. Patient thought that she might be in atrial fibrillation again. Patient states she last was in A. fib about 6 or 7 years ago. She is not currently anticoagulated. She denies any chest pain or shortness of breath. She denies recent illness. Patient denies recent travel or surgery. PFSH PFS Medical History (Updated 07/21/21 @ 21:[address] Santa Hinojosa, DO) Chest pain on exertion Chronic back pain Incomplete right bundle branch block Lightheaded Nausea PAF (paroxysmal atrial fibrillation) Home Medications aspirin 81 mg tablet,delayed release 81 mg PO DAILY 09/29/20 [History Last Taken Unknown] metoprolol succinate 25 mg tablet,extended release 24 hr 25 mg PO DAILY #90 tab 04/30/21 [Rx Last Taken Unknown] Allergy/AdvReac Type Severity Reaction Status Date / Time atorvastatin [From Lipitor] AdvReac Intermediate nausea and Verified 07/21/21 19:53 headache Family History Mother Heart disease MVP Hypertension Surgical History (Updated 02/05/21 @ 09:41 by Kaci Monzon) H/O laparoscopy H/O spinal fusion History of back surgery History of cholecystectomy History of left heart catheterization (01/28/20) History of oophorectomy Social History (Updated 02/05/21 @ 09:42 by Kaci Monzon) household members: spouse and children housing: house number of children: 2 Smoking Status: Never smoker alcohol intake: never what type of physical activity do you participate in: none do you feel safe at home: Yes ROS ROS ED Constitutional Constitutional ED: Reports systems reviewed and no addt'l complaints, except as documented; Denies body ache(s), change in weight or chills Eyes Eyes: Denies acute decrease in peripheral vision, change in vision, double vision or loss of vision ENT ENT ED: Reports none; Denies ear pain, lip swelling, loss taste/smell, neck pain, otalgia or sore throat Cardiovascular Cardiovascular: Reports none and palpitations; Denies abdominal pain, chest pain with activity, leg edema, lightheadedness, rapid heart rate or syncope Respiratory/Chest Respiratory/Chest: Reports none; Denies change in mental status, dry cough, dyspnea, hemoptysis, shortness of breath at rest or shortness of breath with exertion Gastrointestinal Gastrointestinal: Reports none; Denies abdominal pain, change in stool character, diarrhea, hematemesis, hematochezia, melena, rectal bleeding or vomiting Genitourinary Genitourinary ED: Reports none; Denies abdominal discomfort, anuria, dysuria, genital pain or polyuria Musculoskeletal Musculoskeletal: Reports none; Denies arthralgias, back pain, difficulty walking, extremity pain, muscle weakness or myalgias Integumentary Reports none; Denies abscess or rash Neurologic Neurologic: Reports none; Denies abnormal gait, confusion, focal weakness, frequent falls, headache(s), loss of vision, numbness, paresthesias, radicular pain, vertigo or weakness Psychiatric Psychiatric: Reports systems reviewed and no addt'l complaints, except as documented and none; Denies behavioral changes, confusion, difficulty concentrating, hallucinations, suicidal ideation, tactile hallucinations or visual hallucinations Endocrine Endocrinology: Denies none, cold intolerance, excessive sweating, fatigue or heat intolerance Hematologic/Lymphatic Hematologic/Lymphatic: Reports none; Denies anemia, easy bleeding or easy bruising Allergic/Immunologic Allergic/Immunologic ED: Denies as per HPI, none, lip swelling, mouth swelling, throat swelling, tongue swelling or hives EXAM Physical Exam Const Vital Signs: 07/21/21 19:53 07/21/21 20:13 Temperature 98.6 F Temperature Source Temporal Pulse Rate 101 H 91 Respiratory Rate 20 H 17 Respiratory Effort Normal Blood Pressure 149/77 H 156/69 H Blood Pressure Mean 101 98 Pulse Ox 97 100 Oxygen Delivery Method Room Air Room Air Positive well nourished and well developed General Appearance ED: well developed and NAD HEENT Reports TM's clear and moist mucous membranes normocephalic and atraumatic; Negative for trauma or tenderness Tympanic Membrane ED: Yes TM's clear Eyes PERRL and EOMs intact bilaterally General Eye ED: Negative for pale conjunctiva or scleral icterus Neck no lymphadenopathy, supple and no JVD General: Negative for tenderness Chest Wall inspection of chest normal and palpation of chest normal Chest: Negative for tenderness Resp normal respiratory effort and clear to auscultation bilaterally Effort and Inspection: Negative for respiratory distress or pain with movement Auscultation: Negative for rhonchi, wheezes or diminished lung sounds Cardio regular rate, regular rhythm, S1 normal heart sound, S2 normal heart sound and no murmurs Rate: other Other Details: Patient has occasional ectopy and noted to have PVCs on monitor. Peripheral Pulses: pulses 2+ throughout GI normal to inspection, nondistended, normoactive bowel sounds, soft to palpation, non-tender, non-distended and no masses Back/Spine no CVA tenderness and no thoracic nor lumbar tenderness Extremity normal to inspection General Extremety ED: Negative for edema General Extremity: Negative for edema Neuro oriented x3, CN's II-XII intact bilaterally, no sensory deficits noted and gait normal Sensorium / Orientation: awake, alert, oriented to person, oriented to place and oriented to time Motor Exam: strength 5/5 throughout and strength abnormal Psych mental status grossly normal Skin no rashes or lesions noted and no wounds MDM MDM MDM Narrative Medical decision making narrative: IV line was established on arrival. Patient was placed on a alarm security or surveillance monitor. Patient was given 40 mEq of potassium chloride p.o. for low potassium at 3.3. Patient continues to have frequent PVCs. I discussed case with crown assembly machine operator on-call who recommended metoprolol 25 mg twice a day. Patient already taken 25 mg daily and will increase that to 25 twice a day. Patient will follow up with her crown assembly machine operator within next 3 to 5 days. Lab Data Attestation: I reviewed the patient's lab results. Labs: Laboratory Results - last 24 hr 07/21/21 07/21/21 20:05 20:05 WBC 6.8 RBC 4.35 Hgb 13.1 Hct 39.4 MCV 90.6 MCH 30.1 MCHC 33.2 RDW Std Deviation 39.5 RDW Coeff of Joe 11.9 Plt Count 224 MPV 11.1 Immature Gran % (Auto) 0.100 Neut % (Auto) 59.0 Lymph % (Auto) 27.3 [place] % (Auto) 10.3 H Eos % (Auto) 2.7 Baso % (Auto) 0.6 Absolute Neuts (auto) 4.0 Absolute Lymphs (auto) 1.85 Nucleated RBC % 0 Sodium 142 Potassium 3.3 L Chloride 107 Carbon Dioxide 31.0 Anion Gap 4 L BUN 13 Creatinine 0.68 Estim Creat Clear Calc 92.66 Est GFR (MDRD) Af Amer 117 Est GFR (MDRD) Non-Af 97 BUN/Creatinine Ratio 19.0 Glucose 77 Calcium 9.1 Magnesium 2.1 Troponin I High Sens 5 TSH 2.83 EKG Initial EKG: Attestation: I personally reviewed and interpreted this EKG as follows: Comments: Sinus rhythm with occasional PVCs and nonspecific ST changes. Discharge Plan Triage Chief Complaint: Palpitations ED Provider: Santa Hinojosa Dx/Rx/DC Orders Clinical Impression: Heart palpitations, Frequent PVCs Instructions: PVCs, ED Palpitations Prescriptions: No Action aspirin [Adult Aspirin Regimen] 81 mg tablet,delayed release (DR/EC) 81 mg PO DAILY RF: 0 metoprolol succinate 25 mg tablet extended release 24 hr 25 mg PO DAILY Qty: 90 RF: 3 Primary Care Provider: Sabiha Kerns Referrals: Francisco Javier Reinoso MD [STAFF PHYSICIAN] - 3-5 Days Sabiha Kerns MD [Primary Care Provider] - Activity Restrictions/Additional Instructions: Increase your metoprolol to 25 mg twice a day Disposition Disposition: Home, Self Care
[2021-07-21] MEDS: 0.9% Normal Saline 1,000 ML 150 ML IV (20:25)
[2021-07-21 20:37] LABS: Absolute Lymphocyte Count 1.85 X10^3/uL (0.83-4.51); Basophil# 0.04 X10^3/uL; Basophil% 0.6 % (0-1); Eosinophil# 0.18 X10^3/uL; Eosinophils% 2.7 % (0-5); Hematocrit 39.4 % (37-47); Hemoglobin 13.1 g/dL (12.0-15.0); Lymphocyte # 1.85 X10^3/ul (0.83-4.51); Lymphocyte % 27.3 % (19-41); Mean Corp Hgb Conc 33.2 g/dL (32-36); Mean Corpuscular Hgb 30.1 pg (27.0-32.0); Mean Corpuscular Volume 90.6 fL (81-99); Mean Platelet Vol. 11.1 fl (6.2-12.0); Monocyte% 10.3 % (0-10); NRBC Flagged by Analyzer 0 % (0-5); Platelet Count 224 K/mm3 (150-450); RBC Distribution Width CV 11.9 % (11.6-14.6); RBC Distribution Width SD 39.5 fl (35.1-43.9); Red Blood Count 4.35 M/mm3 (4.2-5.4); White Blood Count 6.8 K/mm3 (4.4-11.0)
[2021-07-21 20:53] LABS: Anion Gap 4 (5-15); BUN 13 mg/dL (7-18); Calcium,Total 9.1 mg/dL (8.5-10.1); Chloride 107 mmol/L (98-107); Creatinine, Serum 0.68 mg/dL (0.55-1.02); EST Glomerular Filtration Rate 97 mL/min (>60); Est Glom Filt Rate - Afr Amer 117 mL/min (>60); Estimated Creatinine Clearance 92.66 ml/min; Glucose 77 mg/dL (74-106); Magnesium 2.1 mg/dL (1.6-2.6); Potassium 3.3 mmol/L (3.5-5.1); Sodium Level 142 mmol/L (136-145); Thyroid Stim Hormone (TSH) 2.83 uIU/mL (0.358-3.74); Troponin-I HS 5 pg/mL (3.0-54.0)
[2021-07-21] MEDS: Potassium Chloride Oral Tablet 20 MEQ 40 MEQ PO (21:02)
[2021-07-21 21:57] VITALS: BP 114/76; PULSE 90; RESP 18; O2SAT 97
== END 2021-07-21 21:57 | disposition home or self-care (01) ==
PROVIDERS: Emergency Provider Emergency Medicine; PCP Student in an Organized Health Care Education/Training Program
DX: I49.3 Ventricular premature depolarization (principal); I48.0 Paroxysmal atrial fibrillation; G89.29 Other chronic pain; Z79.82 Long term (current) use of aspirin; Z79.899 Other long term (current) drug therapy
CPT/HCPCS: 80048; 83735; 84443; 84484; 85025; 93005; 96360; 96361; 99283; J7030; A4216

== ENCOUNTER → 2021-08-10 09:00 | Outpatient (CLI) | payer SELFPAY ==
[2021-08-10 10:51] LABS: Anion Gap 6 (5-15); BUN 16 mg/dL (7-18); BUN/Creat Ratio 22.1 RATIO (10-20); Calcium,Total 9.7 mg/dL (8.5-10.1); Chloride 105 mmol/L (98-107); Creatinine, Serum 0.72 mg/dL (0.55-1.02); EST Glomerular Filtration Rate 90 mL/min (>60); Est Glom Filt Rate - Afr Amer 109 mL/min (>60); Free T3 2.9 pg/mL (2.18-3.98); Glucose 85 mg/dL (74-106); Potassium 4.1 mmol/L (3.5-5.1); Sodium Level 140 mmol/L (136-145); T4 Free Direct 0.93 ng/dL (0.76-1.46); Thyroid Stim Hormone (TSH) 2.11 uIU/mL (0.358-3.74)
== END ==
PROVIDERS: PCP Student in an Organized Health Care Education/Training Program; Referring Provider Physician Assistant Medical; Visit Provider Physician Assistant Medical
DX: I48.0 Paroxysmal atrial fibrillation (principal); I49.3 Ventricular premature depolarization; E87.6 Hypokalemia
CPT/HCPCS: 36415; 80048; 84439; 84443; 84481

== ENCOUNTER → 2021-08-23 07:54 | Outpatient (CLI) | payer SELFPAY ==
--- NOTE | 2021-08-23 07:57 | ECHOD_ITS ---
Reason For Study: PALPITATIONS Procedure This was a 2D Doppler, Color Flow transthoracic echocardiogram. Exam performed in department. Left Ventricle Normal LV size. Left ventricular systolic function is normal. The estimated ejection fraction is 55 %. Normal diastology for age. No regional wall motion abnormalities noted. Right Ventricle Normal RV size. Normal systolic function. Atria Normal left atrium. Normal right atrium. Mitral Valve Normal mitral valve. Tricuspid Valve Normal tricuspid valve. Mild (1+) tricuspid valve insufficiency. Pulmonary artery systolic pressure is 28 mmHg. Aortic Valve Normal aortic valve. Trisinus/trileaflet aortic valve. Pulmonic Valve Normal pulmonic valve. Great Vessels Normal aortic root. The pulmonary artery is normal size. Normal inferior vena cava. Pericardium/Pleural No pericardial effusion. MMode/2D Measurements & Calculations LVIDd: 4.9 cm IVSd: 0.90 cm Ao root diam: 3.3 cm LVIDs: 3.4 cm LVPWd: 0.95 cm RVDd: 2.7 cm FS: 29.8 % LAV(MOD-bp): 46.4 ml LA A4 area: 16.6 cm2 LA dimension(2D): 3.4 cm LAV(MOD-bp) Indexed: 25.2 ml/m2 LAV(MOD-sp2): 47.9 ml LAV(MOD-sp4): 43.7 ml RA A4 area: 14.2 cm2 Time Measurements MV dec time: 0.23 sec Doppler Measurements & Calculations MV E max hemanth: 62.5 cm/sec Lat Peak E' Hemanth: 12.6 cm/sec Med Peak E' Hemanth: 11.4 cm/sec MV A max hemanth: 48.6 cm/sec E/E' lat: 5.0 E/E' med: 5.5 MV E/A: 1.3 Ao V2 max: 100.0 cm/sec LV V1 max: 84.1 cm/sec PA V2 max: 65.6 cm/sec Ao max P.0 mmHg LV V1 max P.8 mmHg TR max hemanth: 243.1 cm/sec TR max P.6 mmHg ECHO/Echo Complete Interpretation Summary Normal LV size. Left ventricular systolic function is normal. The estimated ejection fraction is 55 %. Pulmonary artery systolic pressure is 28 mmHg. Ordering Physician: Madison Bhagat Referring Physician: Sabiha Kerns Performed By: Agnes Travis RDCS, RVT
== END ==
PROVIDERS: PCP Student in an Organized Health Care Education/Training Program; Referring Provider Physician Assistant Medical; Visit Provider Physician Assistant Medical
DX: E87.6 Hypokalemia (principal); I48.0 Paroxysmal atrial fibrillation; I49.3 Ventricular premature depolarization
CPT/HCPCS: 93225; 93226; 93306

== ENCOUNTER 2021-09-20 13:06 | Outpatient (CLI) | payer SELFPAY ==
[2021-09-20 15:17] LABS: Follicle Stimulating Hormone 109.7 mIU/mL
[2021-09-25 16:57] LABS: HPV Reflexed? NOT INDICATED
== END 2021-09-20 23:59 | disposition short-term general hospital (02) ==
LOC: WOBLAB 13:07
PROVIDERS: PCP Student in an Organized Health Care Education/Training Program; Referring Provider Obstetrics & Gynecology; Visit Provider Obstetrics & Gynecology
DX: N95.1 Menopausal and female climacteric states (principal); Z12.4 Encounter for screening for malignant neoplasm of cervix
CPT/HCPCS: 36415; 83001; 84443; 88175; G0145

== ENCOUNTER 2021-11-26 10:33 | Outpatient (CLI) | payer SELFPAY | END 2021-11-26 23:59 | disposition home or self-care (01) | LOC: PSN 10:36 | PROVIDERS: PCP Nurse Practitioner Family; Referring Provider Internal Medicine Cardiovascular Disease; Visit Provider Internal Medicine Cardiovascular Disease | DX: I49.3 Ventricular premature depolarization (principal) | CPT/HCPCS: 93225; 93226 ==

== ENCOUNTER 2022-05-20 13:06 | Outpatient (CLI) | payer SELFPAY ==
[2022-05-20 13:36] LABS: Hematocrit 38.9 % (37-47); Mean Corp Hgb Conc 33.4 g/dL (32-36); Mean Corpuscular Hgb 30.5 pg (27.0-32.0); Mean Corpuscular Volume 91.3 fL (81-99); Mean Platelet Vol. 11.1 fl (6.2-12.0); Platelet Count 206 K/mm3 (150-450); RBC Distribution Width CV 12.4 % (11.6-14.6); RBC Distribution Width SD 41.2 fl (35.1-43.9); Red Blood Count 4.26 M/mm3 (4.2-5.4); White Blood Count 5.3 K/mm3 (4.4-11.0)
[2022-05-20 14:19] LABS: AST(SGOT) 22 U/L (15-37); Alanine Aminotransfer ALT/SGPT 36 U/L (13-56); Albumin, Serum 3.5 g/dL (3.2-5.0); Alkaline Phosphatase 64 U/L (45-117); Bilirubin, Direct 0.07 mg/dL (0.00-0.30); Globulin 3.6 g/dL (2.2-4.2); Glucose 89 mg/dL (74-106); Iron 48 ug/dL (50-170); Iron Binding Capacity,Total 354 ug/dL (250-450); Protein, Total 7.1 g/dL (6.4-8.2); T4 Free Direct 0.86 ng/dL (0.76-1.46); Thyroid Stim Hormone (TSH) 2.88 uIU/mL (0.358-3.74)
== END 2022-05-20 23:59 | disposition home or self-care (01) ==
PROVIDERS: PCP Nurse Practitioner Family; Visit Provider Internal Medicine Pulmonary Disease
DX: A54.9 Gonococcal infection, unspecified (principal)
CPT/HCPCS: 36415; 80076; 82947; 83540; 83550; 84439; 84443; 85027; J7030; A4216

== ENCOUNTER → 2022-08-13 | Outpatient (CLI) | payer SELFPAY ==
--- NOTE | 2022-08-13 | EMB_PTH ---
PATIENT: ASA BARRERA [id number] AGE/SX: 52/F ROOM: RE08/13/[address]: Dr. Micaela Jimenez DO : 1970 BED: DIS: 08/13/2022 SPEC #: [id number] RECD: 08/13/22 16:50 STATUS: LEA REMark #: [id number] SUZETTE: 08/13/22 00:[address]: Micaela Jimenez DEPT: SURGICAL PATHOLOGY RECD BY: Bladimir Layne ENTERED: 08/14/22 10:23 SP TYPE: ENDOM BX/C ISABELA DR: Fracnois Rasmussen, ROCHELLE-C Tissues: Endometrium, NOS Procedures: Surgery Specimen Level IV HEADER OPERATION: Endometrial biopsy PRE-OP DIAGNOSIS: Postmenopausal bleeding N95.0 TISSUE SUBMITTED: Endometrial biopsy MICROSCOPIC DIAGNOSIS Endometrium, biopsy: Detached strips of benign glandular mucosa. See comment. AM:surendra 08/15/2022 COMMENT The specimen primarily consists of blood. Clinical correlation is suggested. MICROSCOPIC DESCRIPTION Slides are reviewed. GROSS DESCRIPTION Received in fixative is one container labeled with the patient's name and designated endometrial biopsy. The specimen consists of multiple irregular fragments of red-house soft tissue that in aggregate measure 1.2 x 1 x 0.2 cm. The specimen is totally submitted in one cassette. / AM:surendra 08/14/2022 TC:5 CPT: 03720
== END | disposition home or self-care (01) ==
LOC: LABSPEC 16:03
PROVIDERS: PCP Nurse Practitioner Family; Visit Provider Student in an Organized Health Care Education/Training Program
DX: N95.0 Postmenopausal bleeding (principal)
CPT/HCPCS: 88305

== ENCOUNTER → 2022-10-11 | Outpatient (CLI) | payer SELFPAY ==
[2022-10-11 13:38] LABS: Anion Gap 6 (5-15); BUN 19 mg/dL (7-18); BUN/Creat Ratio 28.2 RATIO (10-20); Chloride 107 mmol/L (98-107); Creatinine, Serum 0.67 mg/dL (0.55-1.02); EST Glomerular Filtration Rate 98 mL/min (>60); Est Glom Filt Rate - Afr Amer 118 mL/min (>60); Glucose 85 mg/dL (74-106); Potassium 4.2 mmol/L (3.5-5.1); Sodium Level 140 mmol/L (136-145); Thyroid Stim Hormone (TSH) 2.24 uIU/mL (0.358-3.74)
== END | disposition home or self-care (01) ==
PROVIDERS: PCP Nurse Practitioner Family; Visit Provider Physician Assistant Medical
DX: I48.0 Paroxysmal atrial fibrillation (principal); R00.2 Palpitations
CPT/HCPCS: 36415; 80048; 83735; 84443

== ENCOUNTER 2022-12-12 07:31 | Day surgery (SDC) | payer SELFPAY ==
[2022-12-06 11:28] LABS: Hemoglobin 13.3 g/dL (12.0-15.0); Mean Corp Hgb Conc 33.3 g/dL (32-36); Mean Corpuscular Hgb 30.2 pg (27.0-32.0); Mean Corpuscular Volume 90.7 fL (81-99); Mean Platelet Vol. 11.4 fl (6.2-12.0); Platelet Count 209 K/mm3 (150-450); RBC Distribution Width SD 40.2 fl (35.1-43.9); Red Blood Count 4.41 M/mm3 (4.2-5.4); White Blood Count 5.7 K/mm3 (4.4-11.0)
[2022-12-06 11:42] LABS: AST(SGOT) 21 U/L (15-37); Alanine Aminotransfer ALT/SGPT 26 U/L (13-56); Albumin, Serum 3.7 g/dL (3.2-5.0); Alkaline Phosphatase 54 U/L (45-117); Anion Gap 7 (5-15); BUN 18 mg/dL (7-18); BUN/Creat Ratio 24.1 RATIO (10-20); Bilirubin, Direct 0.28 mg/dL (0.00-0.30); Calcium,Total 9.2 mg/dL (8.5-10.1); Chloride 105 mmol/L (98-107); Creatinine, Serum 0.75 mg/dL (0.55-1.02); EST Glomerular Filtration Rate 87 mL/min (>60); Est Glom Filt Rate - Afr Amer 105 mL/min (>60); Globulin 3.4 g/dL (2.2-4.2); Glucose 93 mg/dL (74-106); Potassium 4.2 mmol/L (3.5-5.1); Protein, Total 7.1 g/dL (6.4-8.2); Sodium Level 140 mmol/L (136-145)
[2022-12-06 11:49] LABS: Prothrombin Time (Protime)PT. 12.9 SECONDS (11.7-14.9)
[2022-12-06 11:50] LABS: Partial Thromboplast Time 27.4 Seconds (24.1-36.2)
[2022-12-12 07:51] LABS: Internal QC Validated? YES +Cl - CLEAR BKGD
[2022-12-12 07:53] VITALS: BP 98/59; PULSE 55; RESP 16; TEMP 36.3; O2SAT 100; BMI 27.3
[2022-12-12 07:54] LABS: Pregnancy, Urine Negative Negative
[2022-12-12] MEDS: Lactated Ringers 1,000 ML 15 ML IV (08:07)
--- NOTE | 2022-12-12 08:40 | PCM.HP.BLA ---
History and Physical Date of Admission: 12/12/22 HPI: 52-year-old female with postmenopausal bleeding and pelvic pain plan for hysteroscopy, dilation curettage, laparoscopic ovarian cystectomy. Denies headache or vision changes, chest pain or shortness of breath, nausea or vomiting, fevers or chills, diarrhea or constipation. SUPERINTENDENT OPERATING history: Medical history: 1. Paroxysmal atrial fibrillation Surgical history: 1. Cholecystectomy 1992 2. Back fusion 2007 3. Left oophorectomy 2001 Medications: 1. Aspirin 81 mg 2. Atenolol 25 mg 3. Flecainide 50 mg every 12 4. Multivitamin Family history: Denies history of blood clots or bleeding disorders. Reports today family history of malignant hyperthermia in first cousin, discussed with anesthesiologist. Social history: Denies tobacco, alcohol, drug use Allergies: Atorvastatin Review of system: Negative otherwise stated above Physical exam: Blood pressure 98/59, heart rate 55, respiratory rate 16, temp 97.4 ?F, oxygen saturation 100% on room air General: No acute distress HEENT: Normal cephalic/atraumatic, PERRLA Cardiorespiratory: No increased effort, clear to auscultation bilaterally, regular rate and rhythm Abdomen: Soft, nontender, nondistended Extremities: No edema Neurologic: Cranial nerves II through XII grossly intact Musculoskeletal: Strength 5 out of 5 throughout extremities Assessment/plan: 52-year-old female with postmenopausal bleeding and pelvic pain plan for hysteroscopy, dilation curettage, laparoscopic ovarian cystectomy? All risk, benefits, alternatives discussed with the patient.? Risks include but are not limited to: Risk of bleeding to the point of transfusion, infection, injury to surrounding tissue including bowel/bladder/major abdominal vessels/uterine perforation, VTE, ICU admission.? Patient aware and consented.
--- NOTE | 2022-12-12 08:49 | PCM.OPRPT ---
Report of Operation Date of Procedure: 12/12/22 Pre-Operative Diagnosis: Postmenopausal bleeding, pelvic pain, left ovarian cyst Post-Operative Diagnosis: Postmenopausal bleeding, pelvic pain, colonic adhesions Surgery/Procedure Performed:: Hysteroscopy, dilation and curettage, laparoscopic lysis of adhesions Description of Surgical Findings:: Normal-appearing external genitalia, minimal uterine descensus. Thin endometrial lining, possible adhesions intrauterine fundus. Absence of right ovary. Bilateral Filshie clips, 2 Filshie clips on left fallopian tube, 1 Filshie clips on right fallopian tube. Normal-appearing bilateral fallopian tubes. No left ovarian cyst, normal-appearing left ovary. Adhesions left colon to left pelvic sidewall. No upper abdominal or omental adhesions. Bladder adhesions to anterior uterus. If hysterectomy were indicated, would recommend robotic hysterectomy based on bladder adhesion. Type of Anesthesia: General Specimen's removed: Endometrial curettings Estimated Blood Loss (mL): 10 cc Fluids Replaced: 600 cc Description of Procedure: Indication/risk/benefits: 52-year-old female with postmenopausal bleeding and pelvic pain plan for hysteroscopy, dilation curettage, laparoscopic ovarian cystectomy? All risk, benefits, alternatives discussed with the patient.? Risks include but are not limited to: Risk of bleeding to the point of transfusion, infection, injury to surrounding tissue including bowel/bladder/major abdominal vessels/uterine perforation, VTE, ICU admission.? Patient aware and consented. Procedure: Patient taken to the operating room placed under general anesthesia. Patient placed in the dorsal lithotomy position prepped and draped in the usual sterile fashion. Rondey catheter placed. Weighted speculum is in posterior vagina and Valera retractor used to visualize cervix. Anterior lip of cervix grasped with Allis clamp. Cervix gradually dilated. Hysteroscope placed through the cervical canal with inspection of endometrial cavity noted findings above. Hysteroscope removed. Endometrial curettings completed in 360 degere manner. Sargis manipulator placed. Allis clamp removed. Weighted speculum removed. Gloves were changed and attention turned to the anterior abdominal wall. Infraumbilical incision made with scalpel and trocar placed under direct visualization. Abdomen insufflated. Left lower quadrant trocar placed under direct visualization. Inspection noted findings above. Left colonic sidewall adhesions were noted to be filmy and were lysed with laparoscopic scissors. Abdomen was desufflated. Trocars removed. Skin closed subcuticular stitch and skin glue. Sargis manipulator removed and Rodney catheter removed. Cervix hemostatic. At the end of the procedure all needle, lap, sponge counts were correct. Urine output: 200 cc clear urine Complications None
--- NOTE | 2022-12-12 08:49 | PCM.DC ---
Discharge Instructions Diet Discharge Diet: No restrictions Activity Discharge Activity: Return to Normal Activity and May Shower May resume sexual activity in: 2 weeks Weight Bearing Status: Weight bearing as tolerated Lifting Restrictions: No greater than 15 pounds Dressing / Incision Call your doctor if your incision/area has: Continuous Slow Oozing, Increased Pain/ Swelling, Increased Redness and Foul Smelling Discharge Call your doctor if you observe: Fever of 101 or Higher, Inability to urinate, Using more than 1 pad per hour, Shortness of breath, Chest pain, Calf discomfort and Uncontrolled pain Cleanse incision/area with: Soap & Water and Keep Dressing Clean & Dry Follow Up Care Please Follow Up With: Micaela Jimenez DO When: 2 weeks post operative visit. Test Results: Test results from this visit will be discussed in further detail at your follow-up appointment, if applicable. Discharge Plan Admission Primary Reason for Your Visit: Laparoscopy, Dilation and curettage Attending Provider: Micaela Jimenez Primary Care Provider: Francois Rasmussen NP Discharge Orders/Prescriptions Prescriptions: New oxycodone 5 mg tablet 5 mg PO Q6H PRN (Reason: pain (scale score 7-10)) 3 Days Qty: 10 0RF Continued atenolol 25 mg tablet 25 mg PO DAILY Qty: 90 3RF aspirin 81 mg Tablet,Delayed Release (Dr/Ec) 81 mg PO DAILY multivitamin with iron Tablet 1 tab PO DAILY Probiotic 3 billion cell Capsule 6,000 mmu cells PO DAILY Rx Instructions: administer with a meal flecainide 50 mg tablet 50 mg PO Q12H Qty: 180 3RF Referrals / Follow Up: Francois Rasmussen NP, [employer] [Primary Care Provider] - Disposition Disposition (needs filled in before D/C Order can be placed): Home, Self Care
--- NOTE | 2022-12-12 09:00 | EMB_PTH ---
PATIENT: ASA [place]ARRERA [place] [facility] [place][id number] AGE/SX: 52/F ROOM: RE12/12/[address]: Dr. Micaela Jimenez DO : 1970 BED: DIS: 12/12/2022 SPEC #: [id number] RECD: 12/12/22 10:14 STATUS: LEA REMark #: [id number] SUZETTE: 12/12/22 09:[address]: Micaela Jimenez DEPT: SURGICAL PATHOLOGY RECD BY: Daly Rios ENTERED: 12/12/22 11:42 SP TYPE: ENDOM BX/C ISABELA DR: DALTON Segura Tissues: Endometrium, NOS Procedures: Surgery Specimen Level IV HEADER OPERATION: Hysteroscopy, dilation and curettage, laparoscopic lysis of adhesions PRE-OP DIAGNOSIS: Postmenopausal bleeding, pelvic pain TISSUE SUBMITTED: Endometrial curettings MICROSCOPIC DIAGNOSIS Endometrial curettings: Superficial fragments of inactive endometrial tissue. See comment. SJ:surendra 12/13/2022 COMMENT Clinical correlation and appropriate follow up are necessary. MICROSCOPIC DESCRIPTION Slides are reviewed. GROSS DESCRIPTION Received in fixative is one container labeled with the patient's name and designated endometrial curettings. The specimen consists of multiple fragments of hemorrhagic soft tissue that in aggregate measure 2.0 x 0.5 x 0.1 cm. The specimen is totally submitted in one cassette. / ARDHA:surendra 12/12/2022 TC:4 CPT: 49737
[2022-12-12 09:56] VITALS: BP 110/65; BP 98/59; PULSE 73; RESP 16; TEMP 36.4; O2SAT 99
[2022-12-12 10:00] VITALS: BP 108/66; BP 98/59; PULSE 67; RESP 15; O2SAT 97
[2022-12-12 10:15] VITALS: BP 122/70; BP 98/59; PULSE 64; RESP 16; O2SAT 100
[2022-12-12 10:30] VITALS: BP 134/73; BP 98/59; PULSE 57; RESP 14; TEMP 36.1; O2SAT 100
[2022-12-12] MEDS: HYDROcodone Bitartrate/Apap 5/325 Tablet PO (11:18)
[2022-12-12 12:16] VITALS: BP 119/74; BP 98/59; PULSE 57; RESP 16; TEMP 36.3; O2SAT 100
== END 2022-12-12 12:35 | disposition home or self-care (01) ==
LOC: SDC 07:32 → AC 07:33
PROVIDERS: Anesthesiology; PCP Nurse Practitioner Family; Referring Provider Student in an Organized Health Care Education/Training Program; Visit Provider Student in an Organized Health Care Education/Training Program
PROC: 0UDB8ZZ Extraction of Endometrium, Via Natural or Artificial Opening Endoscopic (ICD-10-PCS; CPT 58558; principal; 2022-12-12 08:45)
DX: N95.0 Postmenopausal bleeding (principal); I48.0 Paroxysmal atrial fibrillation; N73.6 Female pelvic peritoneal adhesions (postinfective); R10.2 Pelvic and perineal pain; I49.3 Ventricular premature depolarization; I45.10 Unspecified right bundle-branch block
CPT/HCPCS: 44180; 00840; 36415; 80048; 80076; 81025; 85027; 85610; 85730; 86850; 86900; 86901; 88305; J7120

== ENCOUNTER → 2023-01-17 | Outpatient (CLI) | payer SELFPAY ==
--- NOTE | 2023-01-17 08:00 | BI_ITS ---
MAMMOGRAPHY - BILATERAL SCREENING REASON FOR EXAM: Female, 52 years old. Routine annual screening examination. PERTINENT HISTORY: Non-contributory. TECHNIQUE: Digital bilateral breast jin (3D mammographic acquisition) in the CC and MLO projections. 2-D mediolateral oblique (MLO) and craniocaudad (CC) views of both breasts were obtained. CAD: Full Field Digital Mammography with Computer Added Detection was performed. COMPARISON: Comparison is made with prior abdomen examination dated May 05, 2019. FINDINGS: Breast Composition: The breasts are heterogeneously dense, which may obscure small masses. There are no dominant masses or suspicious calcifications. No other significant abnormalities are identified. There has been no significant change since the prior study. BI/SCRN MAMM (CAD)W/JIN BILAT IMPRESSION: Stable bilateral screening mammogram. Yearly follow-up mammogram recommended. (A) ASSESSMENT CATEGORY: BIRADS Category 1: Negative. A letter regarding these results will be sent to the patient by the facility within 30 days. Approximately 10% of breast cancers are not detected by mammography. A normal mammogram should not delay biopsy of a clinically suspicious abnormality. [id number] Electronically Signed: Quentin Arevalo MD at 8:56 EDT ,
== END | disposition home or self-care (01) ==
PROVIDERS: PCP Nurse Practitioner Family; Referring Provider Student in an Organized Health Care Education/Training Program; Visit Provider Student in an Organized Health Care Education/Training Program
DX: Z12.31 Encounter for screening mammogram for malignant neoplasm of breast (principal)
CPT/HCPCS: 77063; 77067

== ENCOUNTER → 2024-12-10 | Outpatient (CLI) | payer MEDICAID, SELFPAY ==
[2024-12-10 11:10] LABS: Absolute Lymphocyte Count 1.47 X10^3/uL (0.83-4.51); Absolute Neutrophil Count 3.2 X10^3/uL (2.0-7.7); Basophil# 0.02 X10^3/uL; Basophil% 0.4 % (0-1); Eosinophil# 0.13 X10^3/uL; Eosinophils% 2.5 % (0-5); Hematocrit 37.8 % (37-47); Hemoglobin 12.7 g/dL (12.0-15.0); Lymphocyte # 1.47 X10^3/ul (0.83-4.51); Lymphocyte % 28.2 % (19-41); Mean Corp Hgb Conc 33.6 g/dL (32-36); Mean Corpuscular Hgb 30.2 pg (27.0-32.0); Mean Platelet Vol. 11.8 fl (6.2-12.0); Monocyte# 0.42 X10^3/uL; Monocyte% 8.1 % (0-10); NRBC Flagged by Analyzer 0 % (0-5); Neutrophil # 3.16 X10^3/uL (2.7-7.7); Neutrophil % 60.6 % (47-70); Platelet Count 204 K/mm3 (150-450); RBC Distribution Width CV 12.3 % (11.6-14.6); RBC Distribution Width SD 40.3 fl (35.1-43.9); White Blood Count 5.2 K/mm3 (4.4-11.0)
[2024-12-10 12:34] LABS: Anion Gap 11 (5-15); BUN 16 mg/dL (4-19); BUN/Creat Ratio 22.2 RATIO (10-20); Calcium,Total 9.5 mg/dL (7.6-11.0); Carbon Dioxide 25.4 mmol/L (21.0-32.0); Chloride 104 mmol/L (98-108); Creatinine, Serum 0.73 mg/dL (0.70-1.20); EST Glomerular Filtration Rate 98 (>60); Glucose 93 mg/dL (70-99); Potassium 3.9 mmol/L (3.3-5.1); Sodium Level 141 mmol/L (133-145)
== END | disposition home or self-care (01) ==
PROVIDERS: PCP Nurse Practitioner Family; Referring Provider Nurse Practitioner Gerontology; Visit Provider Nurse Practitioner Gerontology
DX: I49.3 Ventricular premature depolarization (principal)
CPT/HCPCS: 36415; 80048; 83735; 84443; 85025

== ENCOUNTER → 2024-12-23 | Outpatient (CLI) | payer MEDICAID, SELFPAY | END | disposition home or self-care (01) | LOC: PSN 09:55 | PROVIDERS: PCP Nurse Practitioner Family; Referring Provider Nurse Practitioner Gerontology; Visit Provider Nurse Practitioner Gerontology | DX: I49.3 Ventricular premature depolarization (principal) | CPT/HCPCS: 93225; 93226 ==